=== PATIENT | female | born 1955 | race Two or more races ===

== ENCOUNTER 2018-10-16 11:39 | Inpatient (IN) | payer OTHER ==
[~2018-10-16] VITALS: Ht 152.4 cm; Wt 48.1 kg
[2018-10-30] MEDS ORDERED: SYNTH PO (10:24)
[2018-10-30] MEDS ORDERED: SYNTHR PO (10:25)
[2018-11-05] MEDS ORDERED: LEVOXYL50 MCG PO (08:10)
[2018-11-07] MEDS ORDERED: OMEPRAZOLE20 MG PO (13:05)
[2018-11-07] MEDS ORDERED: PERCOCET 5-3251 EACH PO (13:05)
== END 2018-11-07 14:01 | disposition home or self-care (01) | DRG 331 ==
LOC: O/R 11-04 06:20 → SURH 11-04 06:20
PROVIDERS: ADMIT Surgery
PROC: 0DTN4ZZ Resection of Sigmoid Colon, Percutaneous Endoscopic Approach (ICD-10-PCS; principal; 2018-11-04 20:30)
DX: K57.32 Diverticulitis of large intestine without perforation or abscess without bleeding (principal); E03.8 Other specified hypothyroidism

== ENCOUNTER 2019-11-02 07:30 | Day surgery (SDC) | payer OTHER ==
[~2019-11-02 07:30] MED LIST: LEVOXYL50 MCG PO; OMEPRAZOLE20 MG PO; PERCOCET 5-3251 EACH PO; SYNTH PO; SYNTHR PO
== END 2019-11-02 14:05 | disposition home or self-care (01) ==
LOC: AMB-ENDOS 07:30
DX: K57.32 Diverticulitis of large intestine without perforation or abscess without bleeding (principal)

== ENCOUNTER 2022-06-28 06:20 | Outpatient (CLI) | payer OTHER | END 2022-06-28 06:21 | disposition home or self-care (01) | LOC: LAB 06:20 | PROVIDERS: ATTEND Acupuncturist | DX: Z20.828 Contact with and (suspected) exposure to other viral communicable diseases (principal); R05.9 Cough, unspecified ==